=== PATIENT | female | born 1995 | race Hispanic/Latino ===

== ENCOUNTER 2016-11-12 21:45 | Emergency (ER) | payer OTHER ==
[~2016-11-12] VITALS: Ht 149.9 cm; Wt 49.0 kg
[2016-11-12] MEDS ORDERED: ACETAMINOPHEN TAB 650MG DOSE (2X325MG) PO ONE (22:45)
[2016-11-12] MEDS ORDERED: AMOX500C PO (23:23)
[2016-11-12] MEDS ORDERED: NAPR500T PO (23:23)
[2016-11-12] MEDS ORDERED: AMOXICILLIN 500 MG CAP PO ONE (23:30)
[2016-11-12 23:32] VITALS: BP 120/74
== END 2016-11-12 23:34 | disposition home or self-care (01) ==
LOC: M ED 23:17
DX: J02.0 Streptococcal pharyngitis (principal); F17.210 Nicotine dependence, cigarettes, uncomplicated; J45.909 Unspecified asthma, uncomplicated; R51 Headache

== ENCOUNTER 2016-12-16 21:43 | Emergency (ER) | payer OTHER ==
[~2016-12-16] VITALS: Ht 149.9 cm; Wt 49.4 kg
[~2016-12-16 21:43] MED LIST: AMOX500C PO; NAPR500T PO
[2016-12-16] MEDS ORDERED: HYDR-3716 PO (21:54)
[2016-12-16] MEDS ORDERED: DEBR6.5S4 AD (23:41)
[2016-12-16 23:45] VITALS: BP 111/74
== END 2016-12-16 23:46 | disposition home or self-care (01) ==
LOC: M ED 22:20
DX: H61.22 Impacted cerumen, left ear (principal)

== ENCOUNTER → 2017-05-23 | Outpatient (CLI) | payer OTHER ==
[~2017-05-23] MED LIST changes: +DEBR6.5S4 AD; +HYDR-3716 PO
[2017-05-23 18:50] LABS: BASO % 0.2 % (0.0-1.0); EOS # 0.1 10^3/uL (0.0-0.50); EOS % 0.7 % (0.0-3.0); IMMATURE GRANULOCYTE % 0.2 % (0-0); LYMPH # 2.4 10^3/uL (1.5-6.5); MEAN CORPUSCULAR HEMOGLOBIN 27.7 pg (27.0-33.0); MEAN CORPUSCULAR HGB CONC 32.5 g/dl (32.0-36.5); MONO # 0.5 10^3/uL (0.0-0.8); MONO % 5.7 % (0.0-5.0); NEUTROPHILS # 6.4 10^3/uL (1.8-7.7); NEUTROPHILS % 68.2 % (36.0-66.0); PLATELET COUNT, AUTOMATED 276 10^3/uL (150-450); RED CELL DISTRIBUTION WIDTH 12.6 % (11.5-14.5); WHITE BLOOD COUNT 9.4 10^3/uL (4.0-10.0)
[2017-05-23 19:14] LABS: ADD MORPHOLOGY? NO
[2017-05-24 09:57] LABS: HBsAg Prenatal NEGATIVE (NEGATIVE)
== END ==
LOC: M SMT 15:09
PROVIDERS: ATTEND Specialist
DX: Z34.81 Encounter for supervision of other normal pregnancy, first trimester (principal)

== ENCOUNTER → 2017-08-09 | Outpatient (CLI) | payer OTHER ==
--- NOTE | 2017-08-09 13:28 | REP ---
Obstetric ultrasound for anatomy: There is a single intrauterine gestation in a transverse lie with head to the maternal right. There is movement and cardiac activity, the heart rate is 160 beats per minute. There is an anterior placenta without previa or abruptio with grade zero maturity. The amniotic fluid volume subjectively is normal. The cervix is 3.6 cm length. By the ultrasound today gestational age is 20 weeks 2 days. DEANGELO is 12/25/2017. By LMP gestational age is 18 weeks 2 days. DEANGELO is 01/08/2018. weight is 335 grams (0 pounds, 11 ounces). This is the greater than 97th percentile for 18 weeks 2 days, but it is the 44th percentile for 20 weeks 2 days. The following anatomic structures are identified and are unremarkable: Cranium, choroid plexus, cranial lateral ventricles, cavum septum pellucidum, cerebellum, facial profile, face, upper lip, lungs, cardiac right ventricular outflow tract, diaphragm, stomach, cord insertion, three-vessel cord, kidneys, bladder, spine and upper lower extremities. Suboptimally demonstrated are the four-chamber view of the heart and cardiac left ventricular outflow tract. A followup study dedicated to these structures might be considered. Otherwise, there are no anomalies. Signed by Sd Randle MD 08/09/2017 01:20 P
== END ==
LOC: M RAD 12:12
PROVIDERS: ATTEND Obstetrics & Gynecology
DX: Z34.82 Encounter for supervision of other normal pregnancy, second trimester (principal)

== ENCOUNTER 2018-10-21 17:30 | Emergency (ER) | payer OTHER ==
[~2018-10-21] VITALS: Ht 149.9 cm; Wt 56.8 kg
[~2018-10-21 17:30] MED LIST changes: +KEFL500C17 PO; +NAPR-50 PO; -NAPR500T PO
[2018-10-21] MEDS ORDERED: IBUPROFEN 600 MG TAB PO ONE (19:30)
[2018-10-21 20:29] LABS: CK-MB VALUE MASS < 1.0 NG/ML (<3.6); CPK CREATINE PHOSPHOKINASE 106 U/L (26-192); MB/CK RELATIVE INDEX 0.94 (< OR =4); TROPONIN I < 0.02 NG/ML (< 0.10)
[2018-10-21] MEDS ORDERED: HYDR-3363 PO (20:44)
[2018-10-21 20:52] VITALS: BP 120/72
--- NOTE | 2018-10-22 07:45 | REP ---
Clinical: Acute chest pain . Comparison: None . Technique: PA and lateral. Findings: The mediastinum and cardiac silhouette are normal. The lung clark are clear and without acute consolidation, effusion, or pneumothorax. The skeletal structures are intact and normal. Impression: 1. No acute cardiopulmonary process. Electronically Signed by Alfred Young MD 10/21/2018 07:57 P
--- NOTE | 2018-10-22 20:41 | ECGEPIP ---
Stationary ECG Study [facility] - ED Test Date: 2018-10-21 Pat Name: BLANCHE PATEL Department: Room: - Gender: F Internet Researcher: HELEN : 1995 Requested By: Haylee Ca Order Number: [id number] Reading MD: Haylee Ca Measurements Intervals [place] Rate: 71 P: 73 SD: 161 QRS: 68 QRSD: 100 T: 74 QT: 382 QTc: 418 Interpretive Statements SINUS RHYTHM WITH SINUS ARRHYTHMIA NO PRIOR FOR COMPARISON Electronically Signed On 10-22-2018 20:41:36 EST by Haylee Ca
== END 2018-10-21 20:56 | disposition home or self-care (01) ==
LOC: M ED 17:30
DX: R07.89 Other chest pain (principal); R11.0 Nausea; R06.02 Shortness of breath

== ENCOUNTER → 2019-01-21 | Outpatient (REF) | payer MEDICAID, OTHER ==
[~2019-01-21] MED LIST changes: +HYDR-3363 PO; -NAPR-50 PO; +NAPR-837 PO
[2019-01-21 12:47] LABS: APPEARANCE, URINE HAZY (CLEAR); BACTERIA, URINE AUTO 1+ (NEGATIVE); BILIRUBIN, URINE AUTO NEGATIVE (NEGATIVE); BLOOD, URINE BLOOD NEGATIVE (NEGATIVE); COLOR, URINE YELLOW (YELLOW); GLUCOSE, URINE (UA) AUTO NEGATIVE (NEGATIVE); KETONE, URINE AUTO NEGATIVE (NEGATIVE); LEUKOCYTE ESTERASE, URINE AUTO 3+ (NEGATIVE); MUCUS, URINE SMALL (NEGATIVE); NITRITE, URINE AUTO NEGATIVE (NEGATIVE); PROTEIN, URINE AUTO NEGATIVE (NEGATIVE); RBC, URINE AUTO 1 /HPF (0-3); SPECIFIC GRAVITY URINE AUTO 1.032 (1.002-1.035); SQUAMOUS EPITHELIAL CELL UR AU 4 /HPF (0-6); UROBILINOGEN, URINE AUTO 0.2 mg/dL (0.0-2.0); WBC, URINE AUTO 14 /HPF (0-3)
[2019-01-21 18:06] LABS: BASO % 0.3 % (0.0-1.0); EOS # 0.1 10^3/uL (0.0-0.50); EOS % 0.9 % (0.0-3.0); HEMATOCRIT 43.9 % (36.0-47.0); HEMOGLOBIN 14.1 g/dl (12.0-15.5); LYMPH # 2.1 10^3/uL (1.5-6.5); LYMPH % 26.4 % (24.0-44.0); MEAN CORPUSCULAR HEMOGLOBIN 27.3 pg (27.0-33.0); MEAN CORPUSCULAR HGB CONC 32.1 g/dl (32.0-36.5); MEAN CORPUSCULAR VOLUME 84.9 fl (80.0-96.0); MONO # 0.4 10^3/uL (0.0-0.8); MONO % 5.1 % (0.0-5.0); NEUTROPHILS # 5.4 10^3/uL (1.8-7.7); PLATELET COUNT, AUTOMATED 287 10^3/uL (150-450); RED BLOOD COUNT 5.17 10^6/uL (4.00-5.40)
[2019-01-21 18:16] LABS: ALT/SGPT 18 U/L (12-78); BILIRUBIN,TOTAL 1.1 MG/DL (0.2-1.0); BLOOD UREA NITROGEN 12 MG/DL (7-18); CALCIUM LEVEL 9.5 MG/DL (8.5-10.1); CARBON DIOXIDE LEVEL 29 MEQ/L (21-32); CHLORIDE LEVEL 107 MEQ/L (98-107); CHOLESTEROL LEVEL 172 MG/DL (<200); CREATININE FOR GFR 0.67 MG/DL (0.55-1.30); GLOMERULAR FILTRATION RATE > 60.0 (>60); GLUCOSE, FASTING 62 MG/DL (70-100); POTASSIUM SERUM 4.1 MEQ/L (3.5-5.1); SODIUM LEVEL 141 MEQ/L (136-145); TRIGLYCERIDES LEVEL 87 MG/DL (<150)
[2019-01-21 18:17] LABS: ALBUMIN 4.4 GM/DL (3.2-5.2); CHOLESTEROL RISK RATIO 3.071 (<5); HDL CHOLESTEROL 56 MG/DL (>40); LDL CHOLESTEROL 99 MG/DL (<100); NON-HDL-C 116 MG/DL; THYROID STIMULATING HORMONE 0.793 uIU/ML (0.358-3.740); TOTAL 25(OH) VITAMIN D 14.2 NG/ML (30.0-100.0); TOTAL PROTEIN 7.6 GM/DL (6.4-8.2)
[2019-01-21 18:27] LABS: HEMOGLOBIN A1c 5.4 %
== END ==
LOC: M LAB REF 12:14
PROVIDERS: ATTEND Nurse Practitioner Family
DX: Z13.9 Encounter for screening, unspecified (principal)